=== PATIENT | female | born 1990 | race Caucasian/White ===

== ENCOUNTER 2019-08-12 05:42 | Day surgery (SDC) | payer SELFPAY ==
[2019-08-08 18:52] VITALS: BMI 42.0
[2019-08-12] MEDS ORDERED: EPINEPHrine/PF 1 MG/1 ML (1:1,000) AMPULE ONE ×3 (07:15→08:08)
[2019-08-12] MEDS ORDERED: LIDOCAINE HCL 2% (20ML MULTI-DOSE VIAL) NR ONE (07:15)
[2019-08-12] MEDS ORDERED: SODIUM BICARBONATE 4.2% 5 MEQ/10 ML DISP.SYRIN IVPUSH ONE (07:15)
[2019-08-12] MEDS ORDERED: PHENYLEPHRINE HCL 10 MG/1 ML SINGLE DOSE VIAL ONE (07:17)
[2019-08-12] MEDS ORDERED: GLYCOPYRROLATE 0.2 MG/1 ML VIAL ONE (07:17)
[2019-08-12] MEDS ORDERED: fentaNYL CITRATE 250 MCG/5 ML VIAL ONE (07:18)
[2019-08-12] MEDS ORDERED: MIDAZOLAM HCL 2 MG/2 ML SINGLE DOSE VIAL ONE ×2 (07:18→08:08)
[2019-08-12] MEDS ORDERED: SUCCINYLCHOLINE CHLORIDE 200 MG/10 ML SYRINGE ONE (07:18)
[2019-08-12] MEDS ORDERED: EPHEDRINE SULFATE/0.9% NACL/PF 50 MG/10 ML SYRINGE NR ONE (07:18)
[2019-08-12] MEDS ORDERED: ROCURONIUM BROMIDE 50 MG/5 ML SYRINGE ONE ×2 (07:18→09:27)
[2019-08-12] MEDS ORDERED: PROPOFOL 20 ML ONE ×2 (07:18)
[2019-08-12] MEDS ORDERED: NEOSTIGMINE METHYLSULFATE 0.5 MG/ML - 10 ML MDV ONE (07:18)
[2019-08-12] MEDS ORDERED: LIDOCAINE HCL 2% JELLY (5 ML/TUBE) ONE (07:19)
[2019-08-12] MEDS ORDERED: LIDOCAINE HCL/PF 2% SDV 5ML VIAL ONE ×2 (07:19→08:48)
[2019-08-12] MEDS ORDERED: LIDOCAINE HCL 1%, 10 MG/ML (20ML VIAL) ONE ×2 (08:06→08:17)
[2019-08-12] MEDS ORDERED: SODIUM BICARBONATE 8.4% 50 MEQ/50 ML VIAL ONE (08:07)
[2019-08-12] MEDS ORDERED: EPINEPHrine 1:1,000 1 MG/1 ML - 30ML VIAL (INJECTION) ONE (08:08)
[2019-08-12] MEDS ORDERED: CLINDAMYCIN PHOSPHATE 600 MG/4 ML VIAL ONE ×2 (08:48)
[2019-08-12] MEDS ORDERED: HYDROmorphone HCL/PF 1 MG/ML AMP ONE ×2 (09:10→12:22)
[2019-08-12] MEDS ORDERED: BUPIVACAINE HCL/PF 0.5% (5MG/ML) 10 ML VIAL ONE (09:31)
[2019-08-12] MEDS ORDERED: GUM MASTIC/STORAX/MSAL/ALCOHOL 1 DRP DROPSBTL MC ONE (10:47)
[2019-08-12] MEDS ORDERED: ONDANSETRON 4 MG/2 ML VIAL ONE (12:48)
[2019-08-12] MEDS ORDERED: DEXAMETHASONE SOD PHOSPHATE 4 MG/1 ML VIAL ONE (12:48)
[2019-08-12] MEDS ORDERED: ONDANSETRON 4 MG/2 ML VIAL IVPUSH PRN (13:42)
[2019-08-12] MEDS ORDERED: oxyCODONE HCL 5 MG TABLET PO PRN ×2 (13:42)
[2019-08-12] MEDS ORDERED: LACTATED RINGERS SOLUTION 1,000 ML IV SCH (13:45)
[2019-08-12] MEDS ORDERED: HYDROmorphone HCL 2 MG TABLET PO ONE ×2 (13:56→15:41)
[2019-08-12] MEDS ORDERED: HYDROmorphone HCL 2 MG TABLET ONE ×2 (14:07→15:34)
[2019-08-12] MEDS ORDERED: PANTOPRAZOLE 40 MG TABLET (FP) ONE (17:25)
[2019-08-12] MEDS ORDERED: IBUPROFEN 400 MG TABLET (FP) PO ONE ×2 (17:26→17:30)
[2019-08-12] MEDS ORDERED: PANTOPRAZOLE 40 MG TABLET (FP) PO ONE (17:30)
[2019-08-12 18:41] VITALS: BP 124/80; PULSE 100; TEMP 98.4
--- NOTE | 2019-08-15 17:02 | PATH ---
Surgical Pathology Report Patient Name: REDD ESTRADA Med. Rec. #: [id number] /Age/Gender: 1990 (Age: 29) / F Account: [id number] Location: [facility] [place] [facility] Taken: 08/12/2019 Received: 08/12/2019 Reported: 08/15/2019 Physicians: Aleida Agrwaal M.D. Specimen(s) Received ABDOMINAL SKIN Clinical History Cosmetic Final Diagnosis ABDOMINAL SKIN 3352 G, EXCISION: PORTION OF SKIN AND SUBCUTANEOUS TISSUE. GROSS EXAMINATION ONLY. Electronically Signed Nnamdi Gomez M.D. Gross Description Received fresh labeled "abdominal skin 3352 g," is a 47.0 x 19.0 x 4.0 cm mathias, butterfly-shaped, unoriented portion of skin with underlying soft tissue. The epidermal surface is unremarkable. Sectioning reveals unremarkable yellow, lobulated adipose tissue. No lesions are identified. No sections are submitted, gross only. /08/12/2019 saudi/08/12/2019
== END 2019-08-12 17:45 | disposition home or self-care (01) ==
LOC: FASU 05:42
PROVIDERS: ATTEND Plastic Surgery
PROC: 0J0L3ZZ Alteration of Right Upper Leg Subcutaneous Tissue and Fascia, Percutaneous Approach (ICD-10-PCS; 2019-08-12)
PROC: 0J080ZZ Alteration of Abdomen Subcutaneous Tissue and Fascia, Open Approach (ICD-10-PCS; principal; 2019-08-12 08:56)
PROC: 0J0M3ZZ Alteration of Left Upper Leg Subcutaneous Tissue and Fascia, Percutaneous Approach (ICD-10-PCS; 2019-08-12 08:56)
DX: Z41.1 Encounter for cosmetic surgery (principal)
CPT/HCPCS: 81025; 88300-TC; 94760